=== PATIENT | male | born 1995 | race African-American/Black ===

== ENCOUNTER 2024-03-08 14:48 | Emergency (ER) | payer MEDICAID, MEDICARE ==
[~2024-03-08] VITALS: Ht 180.3 cm; Wt 82.0 kg
[2024-03-08 14:52] VITALS: BP 99/54; PULSE 95; RESP 16; TEMP 98.9; O2SAT 98
== END 2024-03-08 17:54 | disposition left against medical advice (07) ==
LOC: ER 15:04
DX: M54.9 Dorsalgia, unspecified (principal); Z53.21 Procedure and treatment not carried out due to patient leaving prior to being seen by health care provider

== ENCOUNTER 2024-03-16 23:32 | Emergency (ER) | payer MEDICARE ==
[~2024-03-16] VITALS: Ht 177.8 cm; Wt 78.0 kg
[2024-03-16 23:42] VITALS: O2SAT 99
[2024-03-16 23:45] VITALS: O2SAT 98
[2024-03-17] MEDS ORDERED: CEPH500C2 MT (02:12)
[2024-03-17] MEDS ORDERED: CLOT15CR27 TP (02:12)
[2024-03-17 02:57] VITALS: BP 110/53; PULSE 68; RESP 14; TEMP 36.66960
== END 2024-03-17 03:08 | disposition home or self-care (01) ==
LOC: ER 03-17
DX: M54.31 Sciatica, right side (principal); F12.10 Cannabis abuse, uncomplicated
CPT/HCPCS: 73630; 99283